=== PATIENT | female | born 1990 | race Caucasian/White ===

== ENCOUNTER 2018-01-30 05:50 | Day surgery (SDC) | payer BC ==
[2018-01-27 14:26] LABS: HCG UR SG 1.016 (1.003-1.030); MICROSCOPIC AUTO
[2018-01-27 14:27] LABS: CULTURE INDICATED? YES
[2018-01-27 14:36] LABS: BASOPHILS # (AUTO) 0.05 x10^3/uL (0-0.1); BASOPHILS % (AUTO) 1 % (0-1); EOSINOPHILS % (AUTO) 3 % (1-7); LYMPHOCYTES % (AUTO) 31 % (22-44); MD NO; MEAN CORPUSCULAR HEMOGLOBIN 29.2 pg (27.0-34.8); MEAN CORPUSCULAR HGB CONC 32.3 g/dL (32.4-35.8); MEAN CORPUSCULAR VOLUME 90.6 fL (80-100); MEAN PLATELET VOLUME 8.7 fL (7.4-10.4); MONOCYTES # (AUTO) 0.39 x10^3/uL (0.2-0.8); MONOCYTES % (AUTO) 5 % (2-9); NEUTROPHILS # (AUTO) 4.41 x10^3/uL (1.8-6.8); NEUTROPHILS % (AUTO) 60 % (42-75); PLATELET COUNT 243 x10^3/uL (130-400); RED CELL DISTRIBUTION WIDTH 13.7 % (9.6-15.2)
[~2018-01-30] VITALS: Ht 157.5 cm; Wt 74.9 kg
[~2018-01-30 05:50] MED LIST: None per pt
[2018-01-30] MEDS ORDERED: LACTATED RINGERS 1,000 ML IV SCH (06:34)
[2018-01-30] MEDS ORDERED: OxyconTIN ER 20 MG TAB.ER ONE (06:40)
[2018-01-30] MEDS ORDERED: GABAPENTIN 300 MG CAPSULE ONE (06:41)
[2018-01-30] MEDS ORDERED: ACETAMINOPHEN 500 MG TABLET ONE (06:41)
[2018-01-30] MEDS ORDERED: ENOXAPARIN 60 MG/0.6 ML SQ ONE (07:00)
[2018-01-30] MEDS ORDERED: OxyconTIN ER 20 MG TAB.ER PO ONE (07:00)
[2018-01-30] MEDS ORDERED: GABAPENTIN 300 MG CAPSULE PO ONE (07:00)
[2018-01-30] MEDS ORDERED: ACETAMINOPHEN 500 MG TABLET PO ONE (07:00)
[2018-01-30 07:09] VITALS: BP 130/88
[2018-01-30] MEDS ORDERED: SILVER NITRATE STICK TP ONE (07:13)
[2018-01-30] MEDS ORDERED: BUPIVACAINE/PF 0.25% ONE (07:13)
[2018-01-30] MEDS ORDERED: EPINEPHRINE 1 MG/ML, 1ML ONE (07:13)
[2018-01-30] MEDS ORDERED: SCOPOLAMINE PATCH, 1.5MG PATCH.TD72 TD ONE (07:24)
[2018-01-30] MEDS ORDERED: MIDAZOLAM 1 MG/ML, 2ML ONE (07:32)
[2018-01-30] MEDS ORDERED: FENTANYL PF 250 MCG/5ML ONE (07:33)
[2018-01-30] MEDS ORDERED: ROCURONIUM 10 MG/ML,10ML ONE (07:34)
[2018-01-30] MEDS ORDERED: PHENYLEPHRINE 10 MG/ML ONE (07:35)
[2018-01-30] MEDS ORDERED: DEXAMETHASONE 4 MG/ML, 1ML ONE ×2 (07:36)
[2018-01-30] MEDS ORDERED: KETOROLAC 30 MG/1 ML ONE (07:36)
[2018-01-30] MEDS ORDERED: ONDANSETRON 2MG/ML, 2ML ONE (07:36)
[2018-01-30] MEDS ORDERED: LIDOCAINE 4%, 4 ML SYR/CANN TP ONE (07:38)
[2018-01-30] MEDS ORDERED: PROPOFOL 50 ML ONE (07:38)
[2018-01-30] MEDS ORDERED: CLINDAMYCIN 150 MG/ML, 6ML ONE (07:57)
[2018-01-30] MEDS ORDERED: MEPERIDINE/PF 25MG/0.5ML IVPush PRN (08:00)
[2018-01-30] MEDS ORDERED: HYDROmorphone 1 MG/ML, 1ML IV PRN (08:00)
[2018-01-30] MEDS ORDERED: hydrALAzine 20 MG/ML, 1ML IV PRN (08:00)
[2018-01-30] MEDS ORDERED: OXYcodone 5 MG/5 ML ORAL.SOL UDC PO PRN (08:00)
[2018-01-30] MEDS ORDERED: ONDANSETRON 2MG/ML, 2ML IVPush PRN (08:00)
[2018-01-30] MEDS ORDERED: PROMETHAZINE 12.5 MG SUPP PR PRN (08:00)
[2018-01-30] MEDS ORDERED: LABETALOL 5MG/ML, 20ML IV PRN (08:00)
[2018-01-30] MEDS ORDERED: LORazepam 2 MG/ML, 1ML IVPush PRN (08:00)
[2018-01-30] MEDS ORDERED: FENTANYL PF 100 MCG/2ML IV PRN (08:00)
[2018-01-30] MEDS ORDERED: PROMETHAZINE 25 MG/ML, 1ML IV PRN (08:00)
== END 2018-01-30 11:10 ==
LOC: OUT 05:50
PROVIDERS: ATTEND Obstetrics & Gynecology
DX: Z30.2 Encounter for sterilization (principal); G43.809 Other migraine, not intractable, without status migrainosus; F32.9 Major depressive disorder, single episode, unspecified; F41.9 Anxiety disorder, unspecified; Z86.718 Personal history of other venous thrombosis and embolism; Z88.0 Allergy status to penicillin; Z88.8 Allergy status to other drugs, medicaments and biological substances; Z98.890 Other specified postprocedural states
CPT/HCPCS: 36415; 58670; 81001; 81025; 85025; 86850; 86900; 87086; 88302; J0171; J1100; J1650; J1885; J2250; J2370; J2405; J2704; J3010; J3490; J7120

== ENCOUNTER 2019-12-22 10:42 | Emergency (ER) | payer BC, OTHER ==
[~2019-12-22] VITALS: Ht 157.5 cm; Wt 83.4 kg
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
--- NOTE | 2019-12-22 12:00 | NUR ---
TASK RN: MD TO BEDSIDE FOR ASSESSEMENT AT THIS TIME
--- NOTE | 2019-12-22 12:25 | NUR ---
TASK RN: PT BEING TAKEN FOR CT NOW
--- NOTE | 2019-12-22 13:02 | NUR ---
ALL RESULTS BACK AT THIS TIME
[2019-12-22 13:16] VITALS: BP 128/83
--- NOTE | 2019-12-22 13:16 | NUR ---
MD TO BEDSIDE FOR RECHECK. PT TO BE DCd HOME
== END 2019-12-22 13:39 | disposition home or self-care (01) ==
LOC: ED 12:54
DX: G43.011 Migraine without aura, intractable, with status migrainosus (principal)
CPT/HCPCS: 70450; 99284